=== PATIENT | female | born 1985 | race African-American/Black ===

== ENCOUNTER 2018-11-05 20:50 | Emergency (ER) | payer OTHER ==
[2018-11-05 21:14] VITALS: BP 109/73; PULSE 72; TEMP 97.7; BMI 29.0
[2018-11-06] MEDS ORDERED: ACETAMINOPHEN 500 MG TABLET (FP) PO ONE (00:03)
--- NOTE | 2018-11-06 00:07 | PDOC ---
History of Present Illness - General Chief Complaint: Pain Stated Complaint: SWOLLEN LEFT LEG Time Seen by Provider: 11/05/18 23:50 History Source: Patient Exam Limitations: No Limitations - History of Present Illness Initial Comments: 11/06/18 00:04 HISTORY OF PRESENT ILLNESS: 33-year-old woman presents emergency department for evaluation of atraumatic left wrist pain she's been intermittent over the past 3 weeks. Patient reports the pain will spontaneously resolve and then return. Pain has been present and constant for the past 7 days. Patient reports increased pain with pronation and supination of the wrist. No recent travel or sick contacts. PAST MEDICAL HISTORY: Denies past medical history SURGICAL HISTORY: Denies ALLERGIES: No known drug allergies REVIEW OF SYSTEMS General/Constitutional: Denies fever or chills. Denies weakness, weight change. HEENT: Denies change in vision. Denies ear pain or discharge. Denies sore throat. Cardiovascular: Denies chest pain or shortness of breath. Respiratory: Denies cough, wheezing, or hemoptysis. Gastrointestinal: Denies nausea, vomiting, diarrhea or constipation. Denies rectal bleeding. Genitourinary: Denies dysuria, frequency, or change in urination. Musculoskeletal: see HPI Skin and breasts: Denies rash or easy bruising. Neurologic: Denies headache, vertigo, loss of consciousness, or loss of sensation. Psychiatric: Denies depression or anxiety. Endocrine: Denies increased thirst. Denies abnormal weight change. Hematologic/Lymphatic: Denies anemia, easy bleeding, or history of blood clots. Allergic/Immunologic: Denies hives or skin allergy. Denies latex allergy. PHYSICAL EXAM General Appearance: Well-appearing, appropriately dressed. No apparent distress , no intoxication. Vascular Pulses: Dorsalis-Pedis (R): 2+, Dorsalis-Pedis (L): 2+, Radial (R): 2+ , Ulnar (L) 2+ Musculoskeletal/Extremities: Range of motion of the left wrist limited with pronation and supination secondary to pain. Normal capillary refill. Tenderness present over the left ulnar head. Minimal swelling. No deformity noted. No erythema or ecchymosis present. Integumentary: Appropriate color, dry, warm. 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 Fully oriented, alert. Appropriate mood/affect. Motor strength 5/5. No appreciable EOM palsy, facial droop or sensory deficit. Past History - Past Medical History Allergies/Adverse Reactions: Allergies Allergy/AdvReac Type Severity Reaction Status Date / Time No Known Allergies Allergy Verified 05/03/16 10:21 Home Medications: Ambulatory Orders Albuterol Sulfate Inhaler - [Ventolin HFA Inhaler -] 1 inh PO PRN PRN 03/08/15 Albuterol Sulfate Inhaler - [Ventolin HFA Inhaler -] 1 - 2 inh PO Q4H PRN #1 inhaler 05/03/16 Azithromycin [Zithromax 250mg Tablets -] 250 mg PO UTDICT #6 tab 05/03/16 predniSONE [Deltasone -] 40 mg PO DAILY #8 tablet 05/03/16 traZODone HCL [Desyrel -] 50 mg PO HS #7 tablet 05/03/16 traZODone HCL [Trazodone HCl] 50 mg PO HS 05/03/16 Asthma: Yes - Suicide/Smoking/Psychosocial Hx Smoking Status: Yes Smoking History: Unknown if ever smoked Number of Cigarettes Smoked Daily: 10 Hx Alcohol Use: No Drug/Substance Use Hx: No Substance Use Type: None *Physical Exam - Vital Signs Last Vital Signs Temp Pulse Resp BP Pulse Ox 97.7 F 72 20 109/73 98 11/05/18 21:09 11/05/18 21:09 11/05/18 21:09 11/05/18 21:09 11/05/18 21:09 ED Treatment Course - RADIOLOGY Radiology Studies Ordered: Category Date Time Status WRIST W/HAND-LEFT* [RAD] Stat Radiology 11/06/18 00:03 Ordered Medical Decision Making - Medical Decision Making 11/06/18 00:06 A/P: 33-year-old woman with atraumatic left wrist pain Patient reports she is not minimal sign paperwork attesting to that Tylenol 975 mg orally now Left wrist and hand x-ray Reassess 11/06/18 02:00 X-rays as read by me: No acute fractures or dislocations present. No soft tissue swelling noted. No significant change from study performed 09/28/15. Dimitrios wrap, discharged home *DC/Admit/Observation/Transfer Diagnosis at time of Disposition: Wrist pain Qualifiers: Laterality: left Qualified Code(s): M25.532 - Pain in left wrist - Discharge Dispostion Disposition: HOME Condition at time of disposition: Stable Decision to Admit order: No - Referrals Referrals: Nic Young MD [Staff Physician] - - Patient Instructions Additional Instructions: REST. Take Tylenol or Motrin as needed for pain. Follow manufacturers instructions for appropriate dosage. Apply ice for 20 minutes and removed for at least 20 minutes before reapplying the ice. Keep Dimitrios wrap on your wrist as much as possible to help control pain. You've been given the number for an orthopedist. If symptoms do not resolve within the next 7 days call the orthopedist for further evaluation. Return to emergency department for discoloration of the hand, numbness or tingling to the fingers or hand, worsening pain, or any other concerns. Thank you very much for choosing us to provide your emergent healthcare needs. - Post Discharge Activity Forms/Work/School Notes: Back to Work
--- NOTE | 2018-11-06 00:10 | PDOC ---
*Physical Exam - Vital Signs Last Vital Signs Temp Pulse Resp BP Pulse Ox 97.7 F 72 20 109/73 98 11/05/18 21:09 11/05/18 21:09 11/05/18 21:09 11/05/18 21:09 11/05/18 21:09 Medical Decision Making - Medical Decision Making 11/06/18 00:10 Patient seen by the advanced practice provider under my direct supervision. Ancillary testing reviewed as necessary. I agree with plan as outlined by the advanced practice provider. *DC/Admit/Observation/Transfer Diagnosis at time of Disposition: Wrist pain - Referrals - Patient Instructions - Post Discharge Activity
[2018-11-06] MEDS ORDERED: ACETAMINOPHEN 325 MG TABLET (FP) ONE (00:47)
== END 2018-11-06 02:12 | disposition home or self-care (01) ==
LOC: JER 20:50 → JERFT 20:50 → JER 11-06 02:12
DX: M25.532 Pain in left wrist (principal); Z87.09 Personal history of other diseases of the respiratory system
CPT/HCPCS: 73110-TC-LT-FY; 73130-TC-LT-FY; 99281-25

== ENCOUNTER 2021-06-07 14:16 | Emergency (ER) | payer OTHER ==
[2021-06-07 14:27] VITALS: BMI 24.7
[2021-06-07 15:56] LABS: HEMATOCRIT 20.6 % (32.4-45.2); MCHC 30.1 g/dl (32.0-36.0); MEAN CELL VOLUME 55.2 fl (80-96); MEAN PLT VOLUME 7.8 fl (7.5-11.1); PLATELET COUNT 164 10^3/uL (134-434); RBC 3.72 M/mm3 (3.60-5.2); RDW 21.3 % (11.6-15.6); WHITE BLOOD COUNT 4.3 K/mm3 (4.0-10.0)
[2021-06-07 15:57] LABS: MCH 16.6 pg (25.7-33.7)
[2021-06-07 15:59] LABS: HEMOGLOBIN 6.2 GM/dL (10.7-15.3)
[2021-06-07 16:04] LABS: INR 0.93 (0.83-1.09); PROTHROMBIN TIME (PATIENT) 10.9 SEC (9.7-13.0)
[2021-06-07 16:07] LABS: ACTIVATED PTT 26.1 SECONDS (25.2-36.5)
[2021-06-07 16:12] LABS: ALBUMIN 3.4 g/dl (3.4-5.0); BLOOD UREA NITROGEN 12.1 mg/dL (7-18); CALCIUM 8.6 mg/dL (8.5-10.1)
[2021-06-07 16:16] LABS: CREATININE 0.9 mg/dL (0.55-1.3)
[2021-06-07 16:17] LABS: BILIRUBIN,TOTAL 0.2 mg/dL (0.2-1); TOT PROT 7.9 g/dl (6.4-8.2)
[2021-06-07 16:26] LABS: ANISOCYTOSIS 3+; MACROCYTOSIS 0; PLATELET ESTIMATE DECREASED; TARGET CELLS 2+; TEAR DROP CELLS 1+
[2021-06-07 16:27] LABS: URINE APPEARANCE CLEAR; URINE BILIRUBIN NEGATIVE (NEGATIVE); URINE COLOR YELLOW; URINE GLUCOSE (UA) NEGATIVE (NEGATIVE); URINE KETONE NEGATIVE (NEGATIVE); URINE LEUK ESTERASE NEGATIVE (NEGATIVE); URINE NITRITE NEGATIVE (NEGATIVE); URINE PROTEIN NEGATIVE (NEGATIVE); URINE UROBILINOGEN 0.2 mg/dL (0.2-1.0)
[2021-06-07 23:09] VITALS: BP 131/84; PULSE 76; TEMP 99
[2021-06-07 23:10] LABS: HEMATOCRIT 26.7 % (32.4-45.2); HEMOGLOBIN 8.3 GM/dL (10.7-15.3); MEAN CELL VOLUME 61.1 fl (80-96); MEAN PLT VOLUME 7.8 fl (7.5-11.1); PLATELET COUNT 141 10^3/uL (134-434); RBC 4.36 M/mm3 (3.60-5.2); WHITE BLOOD COUNT 5.5 K/mm3 (4.0-10.0)
[2021-06-07 23:28] LABS: MCH 18.9 pg (25.7-33.7)
[2021-06-07 23:32] LABS: ADD RBC MORPHOLOGY YES
[2021-06-08 03:18] LABS: ANISOCYTOSIS 3+; MACROCYTOSIS 0; OVALOCYTE 1+; PLATELET ESTIMATE DECREASED; TEAR DROP CELLS 1+
== END 2021-06-07 23:11 | disposition home or self-care (01) ==
LOC: JER 14:16
DX: D64.9 Anemia, unspecified (principal); R71.0 Precipitous drop in hematocrit
CPT/HCPCS: 36415; 36430; 71045-TC-FY; 80053; 81003; 84703; 85025; 85610; 85730; 86850; 86900; 86901; 86922; 87086; 93005; 93010; 99285-25; P9058

== ENCOUNTER → 2021-09-08 | Emergency (ER) | payer OTHER ==
[2021-09-08 11:08] VITALS: BP 111/71; PULSE 81; TEMP 97.8; BMI 30.5
== END | disposition left against medical advice (07) ==
LOC: JER 10:47
DX: R07.9 Chest pain, unspecified (principal)
CPT/HCPCS: 93005; 93010; 99284-25

== ENCOUNTER 2021-09-21 13:49 | Emergency (ER) | payer OTHER ==
[2021-09-21 13:57] VITALS: BMI 29.0
[2021-09-21 15:20] LABS: BASO % 0.6 % (0-2.0); EOS % 1.8 % (0-4.5); HEMATOCRIT 26.5 % (32.4-45.2); HEMOGLOBIN 8.1 GM/dL (10.7-15.3); LYMPH % 41.2 % (8-40); MCHC 30.5 g/dl (32.0-36.0); MEAN CELL VOLUME 63.9 fl (80-96); MEAN PLT VOLUME 8.1 fl (7.5-11.1); MONO % 7.7 % (3.8-10.2); NEUT % 48.7 % (42.8-82.8); PLATELET COUNT 267 10^3/uL (134-434); RBC 4.14 M/mm3 (3.60-5.2); RDW 19.4 % (11.6-15.6); WHITE BLOOD COUNT 4.7 K/mm3 (4.0-10.0)
[2021-09-21 15:21] LABS: MCH 19.5 pg (25.7-33.7)
[2021-09-21 15:27] LABS: INR 1.02 (0.83-1.09); PROTHROMBIN TIME (PATIENT) 11.7 SEC (9.7-13.0)
[2021-09-21 15:30] LABS: ACTIVATED PTT 28.7 SECONDS (25.2-36.5)
[2021-09-21 15:33] LABS: ALBUMIN 3.6 g/dl (3.4-5.0); BLOOD UREA NITROGEN 16.8 mg/dL (7-18); CALCIUM 9.4 mg/dL (8.5-10.1)
[2021-09-21 15:38] LABS: BILIRUBIN,TOTAL 0.2 mg/dL (0.2-1)
[2021-09-21 15:41] LABS: ANISOCYTOSIS 2+
[2021-09-21 18:04] VITALS: BP 112/71; PULSE 76; TEMP 98.3
== END 2021-09-21 20:00 | disposition home or self-care (01) ==
LOC: JER 13:49
DX: D64.9 Anemia, unspecified (principal); D25.9 Leiomyoma of uterus, unspecified
CPT/HCPCS: 36415; 36430; 80053; 84703; 85025; 85610; 85730; 86850; 86900; 86901; 86922; 93005; 93010; 99285-25; P9058

== ENCOUNTER 2022-03-21 11:01 | Emergency (ER) | payer OTHER ==
[2022-03-21 11:12] VITALS: PULSE 70; TEMP 98.1; BMI 34.5
[2022-03-21] MEDS ORDERED: ACETAMINOPHEN 325 MG TABLET (FP) PO ONE (11:42)
[2022-03-21] MEDS ORDERED: ACETAMINOPHEN 325 MG TABLET (FP) ONE (12:11)
[2022-03-21 12:47] LABS: BASO % 0.3 % (0-2.0); EOS % 3.6 % (0-4.5); HEMATOCRIT 25.8 % (32.4-45.2); HEMOGLOBIN 7.8 GM/dL (10.7-15.3); LYMPH % 36.8 % (8-40); MCHC 30.4 g/dl (32.0-36.0); MEAN CELL VOLUME 60.5 fl (80-96); MEAN PLT VOLUME 8.4 fl (7.5-11.1); MONO % 5.6 % (3.8-10.2); NEUT % 53.7 % (42.8-82.8); PLATELET COUNT 271 10^3/uL (134-434); RBC 4.27 M/mm3 (3.60-5.2); RDW 20.1 % (11.6-15.6); WHITE BLOOD COUNT 4.9 K/mm3 (4.0-10.0)
[2022-03-21 12:53] LABS: MCH 18.4 pg (25.7-33.7)
[2022-03-21 12:54] LABS: ALBUMIN 3.4 g/dl (3.4-5.0); BLOOD UREA NITROGEN 11.3 mg/dL (7-18); CALCIUM 8.7 mg/dL (8.5-10.1); MAGNESIUM 1.9 mg/dL (1.8-2.4)
[2022-03-21 12:58] LABS: CREATININE 0.8 mg/dL (0.55-1.3)
[2022-03-21 12:59] LABS: BILIRUBIN,TOTAL 0.2 mg/dL (0.2-1); TOT PROT 7.5 g/dl (6.4-8.2)
[2022-03-21 16:23] VITALS: BP 138/88; RESP 18
== END 2022-03-21 18:10 | disposition home or self-care (01) ==
LOC: JER 11:01
DX: R22.42 Localized swelling, mass and lump, left lower limb (principal); R07.9 Chest pain, unspecified
CPT/HCPCS: 36415; 71275-TC; 73610-TC-LT-FY; 73630-TC-LT; 80053; 83735; 84484; 85025; 85379; 93005; 93010; 93971-TC; 99285-25; Q9967

== ENCOUNTER 2022-06-02 13:37 | Emergency (ER) | payer OTHER ==
[2022-06-02 13:53] VITALS: BP 121/72; PULSE 83; RESP 18; TEMP 98.1; BMI 32.1
[2022-06-02] MEDS ORDERED: DIPHTH,PERTUSS(ACELL),TET 0.5 ML DISP.SYRIN IM ONE ×2 (15:32→15:33)
== END 2022-06-02 16:04 | disposition home or self-care (01) ==
LOC: JER 13:37 → JERFT 13:37
PROC: 3E0234Z Introduction of Serum, Toxoid and Vaccine into Muscle, Percutaneous Approach (ICD-10-PCS; principal; 2022-06-02)
DX: S61.051A Open bite of right thumb without damage to nail, initial encounter (principal); W50.3XXA Accidental bite by another person, initial encounter
CPT/HCPCS: 87070; 87186; 87205; 90471; 90715; 99283-25

== ENCOUNTER 2022-08-22 18:53 | Emergency (ER) | payer OTHER ==
[2022-08-22 19:17] VITALS: BP 143/101; PULSE 88; RESP 20; TEMP 100; BMI 31.3
== END 2022-08-22 21:33 | disposition home or self-care (01) ==
LOC: JER 18:53
DX: U07.1 COVID-19 (principal)
CPT/HCPCS: 0241U-QW; 71046-TC-FY; 99284-25

== ENCOUNTER 2023-11-19 03:32 | Emergency (ER) | payer OTHER ==
[2023-11-19 03:39] VITALS: BP 130/84; PULSE 82; RESP 17; TEMP 98; BMI 29.0
[2023-11-19] MEDS ORDERED: ACETAMINOPHEN 325 MG TABLET (FP) ONE (05:03)
[2023-11-19] MEDS: ACETAMINOPHEN 325 MG TABLET (FP) PO ONE (05:04)
== END 2023-11-19 05:05 | disposition home or self-care (01) ==
LOC: JER 03:32
DX: R42 Dizziness and giddiness (principal); R10.30 Lower abdominal pain, unspecified; R52 Pain, unspecified
CPT/HCPCS: 82962; 99283-25